=== PATIENT | male | born 1980 | race Caucasian/White ===

== ENCOUNTER 2023-12-27 09:30 | Outpatient (CLI) | payer MEDICARE ==
--- NOTE | 2023-12-27 12:23 | XRAY Report ---
PROCEDURE: Wrist 1-2V RT INDICATIONS: PAIN IN RIGHT WRIST TECHNIQUE: 3 views of the wrist were acquired. COMPARISON: None. FINDINGS: Bones: Chip fracture of the dorsal triquetrum. Soft tissues: No suspicious soft tissue calcifications or masses. IMPRESSION: Chip fracture of the dorsal triquetrum. Reviewed by: Toy Ann MD on 12/27/2023 12:22 PM PDT Approved by: Toy Ann MD on 12/27/2023 12:22 PM PDT Station ID: [id number]
== END 2023-12-27 11:41 | disposition home or self-care (01) ==
LOC: DI.N 09:30
PROVIDERS: ATTEND Physician Assistant Medical
DX: S62.111A Displaced fracture of triquetrum [cuneiform] bone, right wrist, initial encounter for closed fracture (principal)

== ENCOUNTER 2024-01-04 09:27 | Outpatient (CLI) | payer MEDICARE ==
--- NOTE | 2024-01-04 10:03 | XRAY Report ---
PROCEDURE: Wrist 3+V RT INDICATIONS: FX OF TRIQUETRUM BONE, RIGHT WRIST TECHNIQUE: 3 views of the wrist were acquired. COMPARISON: 12/27/2023. FINDINGS: Bones: No fractures or dislocations are seen. The previously described chip fracture of the dorsal t riquetrum is not definitively seen, may be secondary to positioning. No suspicious bony lesions. Soft tissues: No suspicious soft tissue calcifications or masses. IMPRESSION: Previously described chip fracture of the dorsal triquetrum is not definitively seen, may be secondar y to positioning. Reviewed by: Mundo Alba MD on 01/04/2024 10:02 AM PDT Approved by: Mundo Alba MD on 01/04/2024 10:02 AM PDT Station ID: [id number]
== END 2024-01-04 09:28 | disposition home or self-care (01) ==
LOC: DI 09:27
PROVIDERS: ATTEND Physician Assistant Surgical
DX: S62.114A Nondisplaced fracture of triquetrum [cuneiform] bone, right wrist, initial encounter for closed fracture (principal)

== ENCOUNTER 2024-01-10 12:45 | Outpatient (CLI) | payer MEDICARE | END 2024-01-10 13:00 | disposition home or self-care (01) | LOC: LAB.N 12:45 | PROVIDERS: ATTEND Physician Assistant | DX: L29.0 Pruritus ani (principal) | CPT/HCPCS: 87177; 87209 ==

== ENCOUNTER 2024-02-01 09:39 | Outpatient (CLI) | payer MEDICARE ==
--- NOTE | 2024-02-01 11:40 | XRAY Report ---
Wrist 3+V RT HISTORY: 43 years of age, NONDISPLACED FX OF TRIQUETRUM BONE,RIGHT WRIST TECHNIQUE: Wrist 3+V RT COMPARISON: 01/04/2024. FINDINGS/IMPRESSION: Punctate ossification in the dorsal wrist, likely representing previously described triquetral avulsi on fracture, less conspicuous in comparison to the initial radiograph on 12/27/2023. Reviewed by: Olimpia Mckeon MD on 02/01/2024 11:38 AM PDT Approved by: Olimpia Mckeon MD on 02/01/2024 11:38 AM PDT Station ID: [id number]
== END 2024-02-01 09:40 | disposition home or self-care (01) ==
LOC: DI 09:39
PROVIDERS: ATTEND Physician Assistant Surgical
DX: S62.114A Nondisplaced fracture of triquetrum [cuneiform] bone, right wrist, initial encounter for closed fracture (principal)